=== PATIENT | male | born 1970 | race Caucasian/White ===

== ENCOUNTER 2019-10-02 16:30 | Outpatient (RCR) | payer BC, SELFPAY ==
[2019-08-01 09:14] VITALS: PULSE 83
--- NOTE | 2019-08-20 15:22 | PCCPR ---
Absent today due to work conflict
--- NOTE | 2019-09-25 14:26 | PCCPR ---
Ken called today, will be absent today and missed yesterday due to work obligation.
--- NOTE | 2019-10-06 15:32 | PCCPR ---
Absent r/t coronavirus until further notice. Will update us next week.
--- NOTE | 2019-10-13 18:33 | PCCPR ---
Ken called sergio stating that he continues to exercise at home but does not feel comfortable coming in to [facility] rehab due to current coronavirus outbreak. Ken did have change in medication which was updated under home medication.
--- NOTE | 2019-10-15 09:45 | PCCPR ---
Program is temporarily suspended due to COVID outbreak.
--- NOTE | 2019-10-29 10:18 | PCCPR ---
Spoke with Ken who states he has been staying active riding his bike and going on some runs. He states he has also been active in his yard. Will follow up with Ken next week.
--- NOTE | 2019-11-12 13:46 | PCCPR ---
Weekly update call-No questions or concerns at this time. Has repeat ECHO scheduled November 29.
--- NOTE | 2019-12-18 14:30 | PCCPR ---
Message left on Ken' s cell number requesting he give us an update on his progress and last echo. Explained we do not have a reopen date but would keep him posted.
== END 2019-10-02 23:59 | disposition home or self-care (01) ==
LOC: ANHCPREHAB 16:30
DX: Z95.5 Presence of coronary angioplasty implant and graft (principal)
CPT/HCPCS: 93798